=== PATIENT | male | born 1960 | race Caucasian/White ===

== ENCOUNTER 2019-11-19 08:49 | Emergency (ER) | payer OTHER, MEDICAID ==
[~2019-11-19] VITALS: Ht 182.9 cm; Wt 90.0 kg
[2019-11-19 09:39] LABS: BASOPHILS # (AUTO) 0.1 X10'3 (0-0.2); BASOPHILS % (AUTO) 1.1 % (0-1); EOSINOPHILS # (AUTO) 0.3 X10'3 (0-0.9); EOSINOPHILS % (AUTO) 4.2 % (0-6); HEMOGLOBIN 15.6 g/dl (14.0-17.9); LYMPHOCYTES # (AUTO) 1.9 X10'3 (1.1-4.8); MEAN CORPUSCULAR HEMOGLOBIN 33.7 PG (27.0-31.0); MEAN CORPUSCULAR HGB CONC 34.6 g/dL (33.0-36.5); MEAN CORPUSCULAR VOLUME 97.4 FL (78-98); MEAN PLATELET VOLUME 8.3 FL (7.4-10.4); MONOCYTES # (AUTO) 0.5 X10'3 (0-0.9); MONOCYTES % (AUTO) 7.1 % (2-12); NEUTROPHILS # (AUTO) 4.3 X10'3 (1.8-7.7); NEUTROPHILS % (AUTO) 60.6 % (42-75); PLATELET COUNT 243 X10'3 (140-440); RED BLOOD COUNT 4.62 X10'6 (4.70-6.10); WHITE BLOOD COUNT 7.1 X10'3 (4.5-11.0)
[2019-11-19 09:55] LABS: ALANINE AMINOTRANSFERASE 30 U/L (12-78); ALBUMIN 3.6 G/DL (3.4-5.0); ALBUMIN/GLOBULIN RATIO 1.1 (1.1-1.5); ALKALINE PHOSPHATASE 64 IU/L (46-116); ANION GAP 11 (8-16); ASPARTATE AMINO TRANSFERASE 18 U/L (10-37); BILIRUBIN,TOTAL 0.8 MG/DL (0.1-1.0); BLOOD UREA NITROGEN 19 MG/DL (7-18); BUN/CREATININE RATIO 15.2 (5.4-32.0); CALCIUM 8.6 MG/DL (8.5-10.1); CHLORIDE 108 MMOL/L (99-107); CREATININE 1.25 MG/DL (0.60-1.10); GLUCOSE 131 MG/DL (70-104); POTASSIUM 3.6 MMOL/L (3.5-5.1); SODIUM 142 MMOL/L (135-145); TOTAL PROTEIN 6.9 G/DL (6.4-8.2); eGFR 59 ML/MIN
[2019-11-19] MEDS ORDERED: iohexol 350MG/ML 100ml bottle IV ONE (11:08)
--- NOTE | 2019-11-19 11:49 | NUR ---
pt up to the bathroom.
[2019-11-19] MEDS ORDERED: LORazepam 2 mg/ml vial IV ONE (11:50)
[2019-11-19 11:56] VITALS: BP 144/93
== END 2019-11-19 12:11 | disposition home or self-care (01) ==
LOC: ER 08:50
DX: R06.02 Shortness of breath (principal); R10.13 Epigastric pain; F41.9 Anxiety disorder, unspecified; R53.83 Other fatigue; R68.81 Early satiety; F17.200 Nicotine dependence, unspecified, uncomplicated
CPT/HCPCS: 36415; 71045; 71275; 80053; 83880; 84484; 85025; 93005; 99285; Q9967

== ENCOUNTER 2022-07-30 05:53 | Day surgery (SDC) | payer MEDICAID ==
[2022-07-29 09:20] LABS: BASOPHILS # (AUTO) 0.1 X10'3 (0-0.2); BASOPHILS % (AUTO) 1.3 % (0-1); EOSINOPHILS % (AUTO) 14.1 % (0-6); HEMOGLOBIN 15.1 g/dl (14.0-17.9); LYMPHOCYTES % (AUTO) 28.3 % (21-51); MEAN CORPUSCULAR HEMOGLOBIN 33.8 PG (27.0-31.0); MEAN CORPUSCULAR HGB CONC 34.3 g/dL (33.0-36.5); MEAN CORPUSCULAR VOLUME 98.6 FL (78-98); MONOCYTES # (AUTO) 0.4 X10'3 (0-0.9); MONOCYTES % (AUTO) 6.2 % (2-12); NEUTROPHILS # (AUTO) 3.6 X10'3 (1.8-7.7); NEUTROPHILS % (AUTO) 50.1 % (42-75); PLATELET COUNT 180 X10'3 (140-440); RED BLOOD COUNT 4.46 X10'6 (4.70-6.10); RED CELL DISTRIBUTION WIDTH 13.4 % (11.5-14.5); WHITE BLOOD COUNT 7.2 X10'3 (4.5-11.0)
[2022-07-29 09:28] LABS: APTT 26 SECONDS (22-32)
[2022-07-29 09:38] LABS: ALANINE AMINOTRANSFERASE 7 U/L (12-78); ALBUMIN 3.5 G/DL (3.4-5.0); ALBUMIN/GLOBULIN RATIO 1.2 (1.1-1.5); ALKALINE PHOSPHATASE 63 IU/L (46-116); ANION GAP 8 (8-16); ASPARTATE AMINO TRANSFERASE 18 U/L (10-37); BILIRUBIN,TOTAL 0.6 MG/DL (0.1-1.0); BLOOD UREA NITROGEN 24 MG/DL (7-18); BUN/CREATININE RATIO 18.8 (10.0-20.0); CALCIUM 8.6 MG/DL (8.5-10.1); CHLORIDE 108 MMOL/L (99-107); CREATININE 1.28 MG/DL (0.60-1.10); GLUCOSE 108 MG/DL (70-104); POTASSIUM 3.8 MMOL/L (3.5-5.1); SODIUM 142 MMOL/L (135-145); TOTAL CARBON DIOXIDE 26.5 MMOL/L (24-32); TOTAL PROTEIN 6.4 G/DL (6.4-8.2); eGFR 57 ML/MIN
[~2022-07-30] VITALS: Ht 182.9 cm; Wt 87.0 kg
[2022-07-30] VITALS (12 sets, daily range): BP systolic 115–143; BP diastolic 52–91
[2022-07-30] MEDS ORDERED: diphenhydrAMINE 25mg capsule PO PRN (06:20)
[2022-07-30] MEDS ORDERED: nitroGLYCERIN 0.4mg SUBLingual tab SL PRN ×2 (06:20→11:00)
[2022-07-30] MEDS ORDERED: normal saline 1,000 ML IV SCH (06:20)
[2022-07-30] MEDS ORDERED: LORazepam 0.5 MG tablet PO PRN (06:20)
[2022-07-30] MEDS ORDERED: ALBU90AE2 (06:55)
[2022-07-30] MEDS ORDERED: FLUT1BLS10 INH (06:55)
[2022-07-30] MEDS ORDERED: PARO40TA4 PO (06:55)
[2022-07-30] MEDS ORDERED: CARB1TAB36 PO (06:55)
[2022-07-30] MEDS ORDERED: LEVO25TA7 PO (06:55)
[2022-07-30] MEDS ORDERED: BUSP10TA3 PO (06:55)
[2022-07-30] MEDS ORDERED: QUET50TA24 PO (06:55)
[2022-07-30] MEDS ORDERED: METO-539 PO (06:57)
[2022-07-30] MEDS ORDERED: NITR0.4T48 SL (06:57)
[2022-07-30] MEDS ORDERED: HYDR-4069 PO (06:57)
[2022-07-30] MEDS ORDERED: LIDOcaine 1% 30ml preserv. free vial ONE (08:01)
[2022-07-30] MEDS ORDERED: fentaNYL/PF 50MCG/1 ML 2ML syringe ONE (08:01)
[2022-07-30] MEDS ORDERED: midazolam 1 mg/ML 2ml injection ONE (08:01)
[2022-07-30] MEDS ORDERED: iohexol 350 MG/ML 50ML vial IV ONE (08:02)
[2022-07-30] MEDS ORDERED: iohexol 350MG/ML 100ml bottle IV ONE ×2 (08:02→09:14)
[2022-07-30] MEDS ORDERED: nitroGLYCERIN-Tridil 50MG/D5W 250 ML IV ONE (09:08)
[2022-07-30] MEDS ORDERED: heparin 25,000 UNIT/250ml bag 0 ML IV ONE (09:12)
[2022-07-30] MEDS ORDERED: tirofiban 12.5mg in NS 250mL 0 ML IV ONE (09:12)
[2022-07-30] MEDS ORDERED: heparin 1,000unit/ml 10ml vial 0 ML ONE (09:12)
[2022-07-30] MEDS ORDERED: normal saline 1000ml 1,000 ML IV SCH (10:55)
[2022-07-30] MEDS ORDERED: ondansetron/PF 4mg/2ml inj IV PRN (10:55)
[2022-07-30] MEDS ORDERED: OXAZEpam 15mg capsule PO PRN (11:00)
[2022-07-30] MEDS ORDERED: proCHLORperazine 10 MG/2 ml inj IV PRN (11:00)
[2022-07-30] MEDS ORDERED: HYDROcodone/acetaminophen 10/325mg tab PO PRN (11:00)
[2022-07-30] MEDS ORDERED: HYDROcodone/acetaminophen 5mg/325mg tablet PO PRN (11:00)
== END 2022-07-30 15:45 | disposition home or self-care (01) ==
LOC: SSTAY O 05:53
PROVIDERS: ATTEND Internal Medicine Cardiovascular Disease
DX: R94.39 Abnormal result of other cardiovascular function study (principal); I25.10 Atherosclerotic heart disease of native coronary artery without angina pectoris; G20 Parkinson's disease; Z79.01 Long term (current) use of anticoagulants; I42.9 Cardiomyopathy, unspecified; I10 Essential (primary) hypertension; E78.5 Hyperlipidemia, unspecified; Z87.891 Personal history of nicotine dependence
CPT/HCPCS: 36415; 71046; 80053; 85025; 85610; 85730; 93458; 99152; C1760; J1644; J2250; J3010; J3490; J7030; Q0163; Q9967; 99153; A6258; J3246

== ENCOUNTER 2022-08-29 08:13 | Outpatient (CLI) | payer MEDICAID ==
[~2022-08-29 08:13] MED LIST: ALBU90AE2; BUSP10TA3 PO; CARB1TAB36 PO; FLUT1BLS10 INH; HYDR-4069 PO; LEVO25TA7 PO; METO-539 PO; NITR0.4T48 SL; PARO40TA4 PO; QUET50TA24 PO
== END 2022-08-29 23:59 | disposition home or self-care (01) ==
LOC: VAS 08:13
PROVIDERS: ATTEND Internal Medicine Cardiovascular Disease
DX: R22.41 Localized swelling, mass and lump, right lower limb (principal); R22.42 Localized swelling, mass and lump, left lower limb; M79.661 Pain in right lower leg
CPT/HCPCS: 93970